=== PATIENT | female | born 1995 | race Caucasian/White ===

== ENCOUNTER 2016-11-28 07:26 | Emergency (ER) | payer OTHER, BC ==
[~2016-11-28] VITALS: Ht 157.5 cm; Wt 87.6 kg
[2016-11-28 07:35] VITALS: TEMP 36.6; Ht 157.5 cm; Wt 87.6 kg
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
[2016-11-28] MEDS ORDERED: METRONIDAZOLE 250 MG TAB PO STA (09:12)
[2016-11-28] MEDS ORDERED: LEVONORGESTREL (EMERGENCY OC) 1.5 MG TAB PO STA (09:12)
[2016-11-28] MEDS ORDERED: AZITHROMYCIN 250 MG TAB PO ONE (09:15)
[2016-11-28] MEDS ORDERED: CEFTRIAXONE SOD 350MG/ML 1 GM VIAL IM ONE (09:15)
[2016-11-28 09:45] LABS: URINE APPEARANCE CLEAR (CLEAR); URINE BILIRUBIN NEG (NEG); URINE COLOR ORANGE; URINE NITRITE NEG (NEG); URINE SPECIFIC GRAVITY 1.009 (1.000-1.030); UROBILINOGEN NEG (NEG); ZZUR CULT IF INDIC CLEAN CATCH YES
[2016-11-28] MEDS ORDERED: ONDANSETRON 4MG OD TAB ONE (09:45)
[2016-11-28] MEDS ORDERED: EMTRICITABINE/TENOFOVIR TAB PO STA (09:46)
[2016-11-28] MEDS ORDERED: RALTEGRAVIR POTASSIUM TAB 400 MG TAB PO STA (09:46)
[2016-11-28 09:47] LABS: MANUAL MICROSCOPIC REQUIRED? NO; REVIEW REQ? NO
[2016-11-28] MEDS ORDERED: ONDANSETRON 4MG OD TAB PO ONE (10:00)
[2016-11-28] MEDS ORDERED: HIV POST EXPOSURE PROPHYLAXIS KIT ONE (10:01)
[2016-11-28] MEDS ORDERED: TRV PO (10:39)
[2016-11-28] MEDS ORDERED: TRVHP PO (10:39)
[2016-11-28] MEDS ORDERED: RALT400T PO (10:39)
[2016-11-28 10:50] VITALS: BP 137/88; PULSE 89; O2SAT 99
== END 2016-11-28 10:53 | disposition home or self-care (01) ==
LOC: C.EDB 07:29
DX: Z04.41 Encounter for examination and observation following alleged adult rape (principal); Z20.2 Contact with and (suspected) exposure to infections with a predominantly sexual mode of transmission